=== PATIENT | female | born 1955 | race Caucasian/White ===

== ENCOUNTER 2020-04-30 12:12 | Inpatient (IN) ==
[2020-04-30 13:28] LABS: Basophils % 0.2 %; Eosinophils % 0.1 %; Hematocrit 44.4 % (35.3-44.9); Hemoglobin 13.7 g/dL (11.5-15.4); Immature Granulocytes % 0.3 % (0-4); Lymphocytes # 0.6 K/mcL (0.6-4.6); Lymphocytes % 4.8 %; Mean Corpuscular HGB Conc 30.9 g/dL (31.6-35.5); Mean Corpuscular Hemoglobin 31.3 pg (28.0-33.3); Mean Corpuscular Volume 101.4 fL (83.0-100.0); Mean Platelet Volume 11.7 fL (9.4-12.4); Monocytes # 0.8 K/mcL (0.0-1.3); Monocytes % 6.2 %; Neutrophils # 11.2 K/mcL (1.6-8.9); Platelet Count 181 K/mcL (140-400); Red Blood Count 4.38 M/mcL (3.82-4.97); Red Cell Distribution Width 14.1 % (11.5-14.5); Segmented Neutrophils % 88.4 %; White Blood Count 12.7 K/mcL (4.3-11.1)
[2020-04-30 13:51] LABS: BUN/Creatinine Ratio 17 (6-26); Blood Urea Nitrogen 29 mg/dL (8-23); Carbon Dioxide 27 mEq/L (23-29); Chloride 103 mEq/L (98-107); Glucose 136 mg/dL (70-105); Osmolality,Calculated 296 (280-300); Potassium 4.5 mEq/L (3.5-5.1); Sodium 139 mEq/L (136-145); Troponin I < 0.03 ng/mL (< 0.04); eGFR For African Americans 36 (> 60); eGFR For Non-African Americans 30 (> 60)
[2020-04-30 14:58] LABS: Adenovirus Not Detected (Not Detect); Bordetella Pertussis Not Detected (Not Detect); Chlamydophila pneumoniae Not Detected (Not Detect); Coronavirus 229E Not Detected (Not Detect); Coronavirus HKU1 Not Detected (Not Detect); Coronavirus NL63 Not Detected (Not Detect); Coronavirus OC43 Not Detected (Not Detect); Human Metapneumovirus Not Detected (Not Detect); Human Rhinovirus/Enterovirus Not Detected (Not Detect); Influenza A Subtype 2009 H1 Not Detected (Not Detect); Influenza B Not Detected (Not Detect); Mycoplasma pneumoniae Not Detected (Not Detect); Parainfluenza Virus 1 Not Detected (Not Detect); Parainfluenza Virus 2 Not Detected (Not Detect); Parainfluenza Virus 3 Not Detected (Not Detect); Parainfluenza Virus 4 Not Detected (Not Detect); Respiratory Syncytial Virus Not Detected (Not Detect); SARS-CoV-2 Not Detected (Not Detect)
[2020-04-30] MEDS ORDERED: cefTRIAXone 1,000 MG in Water for inj. (sterile) 10 ML IVP ONE (15:00)
[2020-04-30] MEDS ORDERED: *HR* Heparin 5,000 UNIT/ML VIAL IVP ONE (15:00)
[2020-04-30] MEDS ORDERED: Heparin 25,000UNIT/250ML 1/2NS 25,000 UNIT/250 ML IV.SOLN IVC SCH (15:00)
[2020-04-30] MEDS ORDERED: *HR* Heparin 5,000 UNIT/ML VIAL IVP PRN ×2 (15:00)
[2020-04-30] MEDS ORDERED: Azithromycin 500 MG in 0.9 % Sodium Chloride 250 ML IVPB ONE (15:01)
[2020-04-30] MEDS ORDERED: Naloxone 0.4 MG/ML INJ IVP PRN (15:19)
[2020-04-30 15:24] LABS: Hematocrit 41.1 % (35.3-44.9); Hemoglobin 12.4 g/dL (11.5-15.4); Mean Corpuscular HGB Conc 30.2 g/dL (31.6-35.5); Mean Corpuscular Volume 99.5 fL (83.0-100.0); Mean Platelet Volume 11.4 fL (9.4-12.4); Platelet Count 170 K/mcL (140-400); Red Blood Count 4.13 M/mcL (3.82-4.97); Red Cell Distribution Width 14.1 % (11.5-14.5); White Blood Count 12.7 K/mcL (4.3-11.1)
[2020-04-30 15:34] LABS: Heparin anti-factor XA UFH < 0.04 IU/mL (0.30-0.70); Prothrombin Time 11.5 Seconds (9.4-12.1)
[2020-04-30 15:48] LABS: C-Reactive Protein 47 mg/L (Less than 10)
[2020-04-30 16:12] LABS: Ferritin 64 ng/mL (10-120)
[2020-04-30] MEDS: Dexamethasone 4 MG/ML VIAL IVP SCH (17:09)
[2020-04-30] MEDS ORDERED: Melatonin 3 MG TABLET PO PRN (20:24)
[2020-04-30] MEDS: *HR* Heparin 5,000 UNIT/ML VIAL SQ SCH (21:19)
[2020-05-01] MEDS: *HR* Heparin 5,000 UNIT/ML VIAL SQ SCH ×3 (04:15→21:25)
[2020-05-01] MEDS: Benzonatate 100 MG CAPSULE PO PRN ×3 (04:15→21:52)
[2020-05-01 06:38] LABS: Basophils % 0.1 %; Hematocrit 38.3 % (35.3-44.9); Hemoglobin 11.7 g/dL (11.5-15.4); Immature Granulocytes % 0.4 % (0-4); Lymphocytes # 0.8 K/mcL (0.6-4.6); Lymphocytes % 7.3 %; Mean Corpuscular HGB Conc 30.5 g/dL (31.6-35.5); Mean Corpuscular Hemoglobin 30.9 pg (28.0-33.3); Mean Corpuscular Volume 101.1 fL (83.0-100.0); Mean Platelet Volume 12.1 fL (9.4-12.4); Monocytes # 0.5 K/mcL (0.0-1.3); Monocytes % 4.7 %; Neutrophils # 9.4 K/mcL (1.6-8.9); Platelet Count 157 K/mcL (140-400); Red Blood Count 3.79 M/mcL (3.82-4.97); Red Cell Distribution Width 13.8 % (11.5-14.5); Segmented Neutrophils % 87.5 %; White Blood Count 10.7 K/mcL (4.3-11.1)
[2020-05-01 06:58] LABS: Albumin 3.4 g/dL (3.5-5.7); Albumin/Globulin Ratio 0.9 (1.1-2.2); Bilirubin,Direct 0.1 mg/dL (0.0-0.2); Bilirubin,Indirect 0.5 mg/dL (0.0-1.0); Bilirubin,Total 0.6 mg/dL (0.3-1.0); Calcium 9.3 mg/dL (8.6-10.3); Globulin 3.6 g/dL (2.4-3.5); Potassium 4.2 mEq/L (3.5-5.1)
[2020-05-01] MEDS: Azithromycin 500 MG in 0.9 % Sodium Chloride 250 ML IVPB SCH (09:24)
[2020-05-01] MEDS: Dexamethasone 4 MG/ML VIAL IVP SCH (09:24)
[2020-05-01] MEDS: cefTRIAXone 1,000 MG in 0.9 % Sodium Chloride Mini Bag 100 ML IVPB SCH (09:25)
[2020-05-01] MEDS ORDERED: *HR* LORazepam 0.5 MG TABLET PO PRN (11:41)
[2020-05-01] MEDS ORDERED: tiZANidine 4 MG TABLET PO PRN (11:41)
[2020-05-01] MEDS: Topiramate 100 MG TABLET PO SCH ×2 (12:45→21:25)
[2020-05-01] MEDS: GuaiFENesin Liq 200 MG/10 ML UDC PO PRN (18:28)
[2020-05-01] MEDS: Gabapentin 300 MG CAPSULE PO PRN (18:37)
[2020-05-01] MEDS ORDERED: Topiramate 100 MG TABLET PO SCH (21:00)
[2020-05-01] MEDS: Ipratropium 1 PUFF INHALER IH SCH (21:41)
[2020-05-01] MEDS: Cyclosporine [Restasis] 1 DROP OP SCH (23:15)
[2020-05-02 01:19] LABS: Hematocrit 36.6 % (35.3-44.9); Hemoglobin 11.3 g/dL (11.5-15.4); Mean Corpuscular HGB Conc 30.9 g/dL (31.6-35.5); Mean Corpuscular Hemoglobin 30.3 pg (28.0-33.3); Mean Corpuscular Volume 98.1 fL (83.0-100.0); Mean Platelet Volume 12.2 fL (9.4-12.4); Platelet Count 172 K/mcL (140-400); Red Blood Count 3.73 M/mcL (3.82-4.97); Red Cell Distribution Width 13.9 % (11.5-14.5); White Blood Count 9.7 K/mcL (4.3-11.1)
[2020-05-02 01:39] LABS: Calcium 8.7 mg/dL (8.6-10.3); Phosphorous 2.8 mg/dL (2.7-4.5)
[2020-05-02 01:48] LABS: Thyroid Stimulating Hormone 0.878 mcIU/mL (0.340-5.600)
[2020-05-02] MEDS: Ipratropium 1 PUFF INHALER IH SCH ×5 (03:37→22:11)
[2020-05-02] MEDS: Gabapentin 300 MG CAPSULE PO PRN ×3 (05:05→20:22)
[2020-05-02] MEDS: *HR* Heparin 5,000 UNIT/ML VIAL SQ SCH ×3 (05:05→21:59)
[2020-05-02] MEDS: Dexamethasone 4 MG/ML VIAL IVP SCH (07:48)
[2020-05-02] MEDS: Topiramate 100 MG TABLET PO SCH ×2 (07:50→20:22)
[2020-05-02] MEDS: cefTRIAXone 1,000 MG in 0.9 % Sodium Chloride Mini Bag 100 ML IVPB SCH (07:51)
[2020-05-02] MEDS: Cyclosporine [Restasis] 1 DROP OP SCH ×2 (07:52→21:56)
[2020-05-02] MEDS: Azithromycin 500 MG in 0.9 % Sodium Chloride 250 ML IVPB SCH (08:44)
[2020-05-02] MEDS: GuaiFENesin Liq 200 MG/10 ML UDC PO PRN (13:26)
[2020-05-02] MEDS ORDERED: Acetaminophen IV 1,000 MG/100 ML INFUS..BTL IVPB ONE (23:00)
[2020-05-02] MEDS: Benzonatate 100 MG CAPSULE PO PRN (23:35)
[2020-05-03 02:55] LABS: Hemoglobin 11.4 g/dL (11.5-15.4); Mean Corpuscular Hemoglobin 29.5 pg (28.0-33.3); Mean Corpuscular Volume 98.2 fL (83.0-100.0); Mean Platelet Volume 11.8 fL (9.4-12.4); Platelet Count 173 K/mcL (140-400); Red Blood Count 3.87 M/mcL (3.82-4.97); Red Cell Distribution Width 14.3 % (11.5-14.5); White Blood Count 8.5 K/mcL (4.3-11.1)
[2020-05-03] MEDS: Ipratropium 1 PUFF INHALER IH SCH ×2 (03:13→09:36)
[2020-05-03 03:16] LABS: Phosphorous 3.4 mg/dL (2.7-4.5); Potassium 3.9 mEq/L (3.5-5.1)
[2020-05-03] MEDS: *HR* Heparin 5,000 UNIT/ML VIAL SQ SCH (06:11)
[2020-05-03] MEDS: Dexamethasone 4 MG/ML VIAL IVP SCH (07:59)
[2020-05-03] MEDS: Topiramate 100 MG TABLET PO SCH (07:59)
[2020-05-03] MEDS: Azithromycin 500 MG in 0.9 % Sodium Chloride 250 ML IVPB SCH (08:01)
[2020-05-03] MEDS: Gabapentin 300 MG CAPSULE PO PRN (08:05)
[2020-05-03] MEDS: Cyclosporine [Restasis] 1 DROP OP SCH (08:08)
[2020-05-03 08:50] VITALS: BP 118/75
[2020-05-03] MEDS: cefTRIAXone 1,000 MG in 0.9 % Sodium Chloride Mini Bag 100 ML IVPB SCH (09:11)
[2020-05-03] MEDS ORDERED: FLU Vac QV 20-21 (6Month+)/PF 0.5 ML SYRINGE IM ONE (11:29)
[2020-05-03] MEDS ORDERED: Cefdinir 300 MG CAPSULE PO SCH (21:00)
[2020-05-04] MEDS ORDERED: Azithromycin 250 MG TABLET PO SCH (09:00)
== END 2020-05-03 12:58 | disposition home or self-care (01) | DRG 193 ==
LOC: 2NENU 12:12 → EMEROOARM 12:12 → 2NENU 18:10 → SUATTDRO 05-01 11:22 → 3ANU 05-02 21:54
PROVIDERS: ADMIT Internal Medicine; ATTEND Internal Medicine